=== PATIENT | female | born 1955 | race Caucasian/White ===

== ENCOUNTER 2017-01-18 11:28 | Outpatient (CLI) | payer OTHER ==
--- NOTE | 2017-01-19 16:13 | Mammography Report ---
DIGITAL SCREENING MAMMOGRAM: 01/18/2017 CLINICAL INDICATION: A 61-year-old with history of late childbearing, for screening, history of benig n biopsy. COMPARISON: 01/2014, 08/2011, 06/2009, 12/2007. TECHNIQUE: Routine CC and MLO projections were obtained of the breasts. FINDINGS: The breasts again demonstrate scattered fibroglandular densities bilaterally. Postbiopsy c hanges in the right upper outer quadrant are stable. No suspicious masses, clustered microcalcificati ons, or regions of architectural distortion are identified. IMPRESSION: BENIGN FINDINGS. RECOMMENDATION: ROUTINE ANNUAL SCREENING UNLESS OTHERWISE CLINICALLY INDICATED. BIRADS CATEGORY 2-BENIGN FINDINGS. STANDARD QUALIFYING STATEMENTS 1. This examination was reviewed with the aid of Computer-Aided Detection (CAD). 2. A negative or benign imaging report should not delay biopsy if clinically suspicious findings are present. Consider surgical consultation if warranted. More than 5% of cancers are not identified by i maging. 3. Dense breasts may obscure an underlying neoplasm. 15:9:30 JOB #: [id number] EXT JOB #:[id number]
== END 2017-01-18 11:29 | disposition home or self-care (01) ==
LOC: DI.S 11:28
PROVIDERS: ATTEND Family Medicine
DX: Z12.31 Encounter for screening mammogram for malignant neoplasm of breast (principal)
CPT/HCPCS: 77067

== ENCOUNTER 2018-10-30 14:33 | Emergency (ER) | payer OTHER ==
--- NOTE | 2018-10-30 15:20 | ED Physician Documentation ---
PD HPI LOWER EXT INJURY - Stated complaint Stated Complaint: L KNEE PX - Chief complaint Chief Complaint: Ext Problem - History obtained from History obtained from: Patient - History of Present Illness PD HPI LOW EXT INJURY LOCATION: Left, Knee Type of injury: Twist Where injury occurred: Work Timing - onset: Today Timing - duration: Hours (3) Timing - details: Abrupt onset Pain level max: 6 Pain level now: 4 Improved by: Rest Worsened by: Moving, Palpating Associated symptoms: Swelling. No: Weakness, Numbness, Tingling Contributing factors: No: Anticoagulated, Prior ortho surgery, Prosthetic joint Similar symptoms before: Diagnosis (has arthritis in the L knee) Recently seen: Not recently seen Review of Systems Constitutional: denies: Fever, Chills GI: denies: Vomiting Skin: denies: Rash Musculoskeletal: denies: Neck pain, Back pain PD PAST MEDICAL HISTORY - Past Medical History Past Medical History: No - Past Surgical History Past Surgical History: No - Present Medications Home Medications: Ambulatory Orders Medication Instructions Recorded Confirmed Hydrocodone/Acetaminophen 1 - 2 each PO Q6H PRN #14 tablet 10/30/18 [Hydrocodon-Acetaminophen 5-325] - Allergies Allergies/Adverse Reactions: Allergies Allergy/AdvReac Type Severity Reaction Status Date / Time Sulfa (Sulfonamide Allergy Hives Verified 10/30/18 14:49 Antibiotics) - Living Situation Living Situation: reports: With family Living Arrangement: reports: At home - Social History Does the pt have substance abuse?: No - Family History Family history: reports: Non contributory PD ED PE NORMAL - Vitals Vital signs reviewed: Yes - General General: Alert and oriented X 3, No acute distress - Derm Derm: Warm and dry - Extremities Extremities: Other (Left knee, mild effusion. ACL, MCL, PCL, LCL intact. No tenderness on the joint line. Neurovascularly intact) - Neuro Neuro: Alert and oriented X 3 - Psych Psych: Normal mood, Normal affect Results - Vitals Vitals: Vital Signs - 24 hr 10/30/18 10/30/18 14:47 16:46 Temperature 36.7 C 38.6 C H Heart Rate 98 92 Respiratory 18 18 Rate Blood Pressure 149/72 H 147/85 H O2 Saturation 98 98 Oxygen O2 Source Room air - Rads (name of study) Left knee x-ray Radiology: Prelim report reviewed, EMP read contemporaneously, See rad report (Overall moderate tricompartment degenerative joint disease with osteophytes. No subluxation. Small knee joint effusion. No evidence for acute fracture. ) PD MEDICAL DECISION MAKING - ED course Complexity details: reviewed results, re-evaluated patient, considered differential, d/w patient ED course: 63-year-old female with left knee pain. Mild joint effusion. Will utilize a walker at home. We will have her follow-up with her doctor for further care. Possible meniscus injury versus arthritis flare? Patient counseled regarding signs and symptoms for which I believe and urgent re-evaluation would be necessary. Patient with good understanding of and agreement to plan and is comfortable going home at this time This document was made in part using voice recognition software. While efforts are made to proofread this document, sound alike and grammatical errors may occur. Departure - Departure Disposition: 01 Home, Self Care Clinical Impression: Knee effusion, left Osteoarthritis of left knee Qualifiers: Osteoarthritis type: unspecified Qualified Code(s): M17.12 - Unilateral primary osteoarthritis, left knee Condition: Good Instructions: ED Effusion Knee Follow-Up: Dahlia Gorman PA [Primary Care Provider] - Within 1 week Prescriptions: Hydrocodone/Acetaminophen [Hydrocodon-Acetaminophen 5-325] 1 - 2 each PO Q6H PRN #14 tablet PRN Reason: pain Comments: Use the medication as needed for pain. Follow-up with your doctor for repeat evaluation after the swelling is decreased. Return if you worsen. Do not drink alcohol or drive while on narcotic pain medicine. Note that many narcotic pain relievers also contain tylenol/acetaminophen. Please ensure that your total dose of acetaminophen from all sources does not exceed 3 grams (3000mg) per day. You may constipated on this medication, take a stool softener such as "Colace" twice a day while you are on it. Also recommend a iyxn-erk-kdzqkpx laxative such as senna or MiraLAX any day that you do not have a bowel movement. If you received narcotic pain medication in the emergency department, do not drive or operate machinery for the next 24 hours. Forms: Activity restrictions Discharge Date/Time: 10/30/18 16:53
--- NOTE | 2018-10-30 16:30 | XRAY Report ---
Reason: L knee pain, s/p twist Procedure Date: 10/30/2018 Accession Number: [id number] / [id number] Procedure: XR - Knee 4 View LT CPT Code: FULL RESULT: EXAM: LEFT KNEE RADIOGRAPHY EXAM DATE: 10/30/2018 04:18 PM. CLINICAL HISTORY: No known injury, pain and swelling for 2 weeks. COMPARISON: XR KNEE 3 VIEW 04/10/2010 3:50 PM. TECHNIQUE: 4 views. FINDINGS: Overall moderate tricompartment degenerative joint disease with osteophytes. No subluxation. Small knee joint effusion. No evidence for acute fracture. IMPRESSION: Overall moderate tricompartment degenerative joint disease with osteophytes. No subluxation. Small knee joint effusion. No evidence for acute fracture. RADIA
[2018-10-30 16:47] VITALS: BP 147/85
== END 2018-10-30 16:53 | disposition home or self-care (01) ==
LOC: ED 14:33
DX: M25.462 Effusion, left knee (principal); M17.12 Unilateral primary osteoarthritis, left knee
CPT/HCPCS: 99283

== ENCOUNTER 2019-11-12 16:59 | Emergency (ER) | payer MEDICARE, OTHER ==
--- NOTE | 2019-11-12 18:16 | ED Physician Documentation ---
PD HPI UPPER EXT INJURY - Stated complaint Stated Complaint: FELL LAST NIGHT, WRIST INJURY - Chief complaint Chief Complaint: Trauma Ext - History obtained from History obtained from: Patient (She tripped and fell last night and injured her right wrist. Also her face. No loss of consciousness or headache. She broke her wrist a few months ago 2.) Review of Systems Constitutional: denies: Fever, Chills Eyes: denies: Loss of vision, Decreased vision Ears: denies: Loss of hearing, Ear pain Nose: denies: Rhinorrhea / runny nose, Congestion PD PAST MEDICAL HISTORY - Past Medical History Cardiovascular: None Respiratory: None Neuro: None Endocrine/Autoimmune: None GI: None ACCOUNT SERVICE ASSOCIATE: None : None HEENT: None Psych: Depression Musculoskeletal: None Derm: None - Past Surgical History Past Surgical History: No /ACCOUNT SERVICE ASSOCIATE: section - Present Medications Home Medications: Ambulatory Orders Medication Instructions Recorded Confirmed Hydrocodone/Acetaminophen 1 - 2 each PO Q6H PRN #14 tablet 10/30/18 [Hydrocodon-Acetaminophen 5-325] - Allergies Allergies/Adverse Reactions: Allergies Allergy/AdvReac Type Severity Reaction Status Date / Time Sulfa (Sulfonamide Allergy Hives Verified 11/12/19 17:03 Antibiotics) - Social History Does the pt smoke?: No Smoking Status: Never smoker Does the pt drink ETOH?: No Does the pt have substance abuse?: No - Immunizations Immunizations are current?: Yes - POLST Patient has POLST: No PD ED PE NORMAL - Vitals Vital signs reviewed: Yes - General General: Alert and oriented X 3, No acute distress - HEENT HEENT: Other (She has a lot of ecchymosis of the right side of the face, some bony tenderness of the infraorbital area. Extraocular movements seem intact.) - Neck Neck: Supple, no meningeal sign, No bony TTP - Extremities Extremities: Other (Mild tenderness over the distal radius, decent range of motion on the right.) - Neuro Neuro: Alert and oriented X 3, Normal speech Results - Vitals Vitals: Vital Signs - 24 hr 11/12/19 11/12/19 17:03 18:30 Temperature 36.5 C Heart Rate 78 79 Respiratory 14 16 Rate Blood Pressure 171/93 H 166/97 H O2 Saturation 98 98 Oxygen O2 Source Room air - Rads (name of study) X-ray right wrist Radiology: EMP read contemporaneously (Acute minimally displaced distal radius fracture) CT facial bones Radiology: EMP read contemporaneously (Right cheek hematoma, right nasal alar fracture. Soft tissue swelling. Right medial orbital wall defect into the right ethmoid sinus appears chronic) Departure - Departure Disposition: 01 Home, Self Care Clinical Impression: Fracture of right distal radius Qualifiers: Encounter type: initial encounter Fracture type: closed Fracture morphology: other intra-articular Qualified Code(s): S52.571A - Other intraarticular fracture of lower end of right radius, initial encounter for closed fracture Nasal fracture Qualifiers: Encounter type: initial encounter Fracture type: closed Qualified Code(s): S02.2XXA - Fracture of nasal bones, initial encounter for closed fracture Condition: Good Record reviewed to determine appropriate education?: Yes Instructions: ED Fx Forearm Radius Ulna No Redu Requ Follow-Up: [facility] [Provider Group] MALIA HUERTAS [Physician No Access] - Comments: For the wrist fracture you should follow-up with an orthopedic surgeon within the week. You can either follow-up with the local orthopedic surgeons listed on this form or through the [employer] system. Keep the splint on and dry until then. Do not remove it. For the nasal fracture you should follow-up with a facial surgeon. There is 1 in [place] who is listed on this form. You can follow- up with him or through the [employer] system. Also follow-up should happen within the week.
--- NOTE | 2019-11-12 18:39 | XRAY Report ---
Reason: fall with wrist injury Procedure Date: 11/12/2019 Accession Number: [id number] / [id number] Procedure: XR - Wrist 3 View RT CPT Code: Final Report FULL RESULT: EXAM: RIGHT WRIST RADIOGRAPHY EXAM DATE: 11/12/2019 06:02 PM. CLINICAL HISTORY: Fall with wrist injury. COMPARISON: None. TECHNIQUE: 3 views. FINDINGS: Bones: Acute right distal radial fracture, intra-articular with mild dorsal displacement of the dorsal fracture fragment. Adjacent soft tissue swelling. Joints: No subluxation. Mild first carpometacarpal osteoarthritis. IMPRESSION: Bones: Acute right distal radial fracture, intra-articular with mild dorsal displacement of the dorsal fracture fragment. Adjacent soft tissue swelling. Joints: No subluxation. Mild first carpometacarpal osteoarthritis. RADIA
--- NOTE | 2019-11-12 19:08 | CT Report ---
Reason: facial inj Procedure Date: 11/12/2019 Accession Number: [id number] / [id number] Procedure: CT - MAXILLOFACIAL WO CPT Code: Final Report FULL RESULT: EXAM: CT MAXILLOFACIAL WITHOUT CONTRAST EXAM DATE: 11/12/2019 06:43 PM. CLINICAL HISTORY: Facial injury, right facial bruising and swelling after fall last night. COMPARISONS: None. TECHNIQUE: Thin-section axial images were acquired of the face without contrast. Post-processing: Coronal and sagittal reformats. Other: None. In accordance with CT protocol optimization, one or more of the following dose reduction techniques were utilized for this exam: automated exposure control, adjustment of mA and/or KV based on patient size, or use of iterative reconstructive technique. FINDINGS: Acute right nasal alar fracture with moderate depression. Adjacent soft tissue swelling. Right preorbital soft tissue swelling. No acute orbital findings. Right cheek and jaw soft tissue swelling with contusions. Right cheek hematoma measuring 1.3 cm. Right medial orbital wall defect extending into the right ethmoid sinus, the defect measures 1 cm and this appears chronic. Remaining sinuses and visualized mastoid air cells appear clear. IMPRESSION: Acute right nasal alar fracture with moderate depression. Adjacent soft tissue swelling. Right preorbital soft tissue swelling. No acute orbital findings. Right cheek and jaw soft tissue swelling with contusions. Right cheek hematoma measuring 1.3 cm. Right medial orbital wall defect extending into the right ethmoid sinus, the defect measures 1 cm and this appears chronic. RADIA
[2019-11-12 19:30] VITALS: BP 155/89
== END 2019-11-12 19:30 | disposition home or self-care (01) ==
LOC: ED 16:59
DX: S52.571A Other intraarticular fracture of lower end of right radius, initial encounter for closed fracture (principal); S02.2XXA Fracture of nasal bones, initial encounter for closed fracture; S00.83XA Contusion of other part of head, initial encounter; W01.0XXA Fall on same level from slipping, tripping and stumbling without subsequent striking against object, initial encounter; Y92.007 Garden or yard of unspecified non-institutional (private) residence as the place of occurrence of the external cause
CPT/HCPCS: 70486; 99284

== ENCOUNTER 2020-06-26 08:56 | Outpatient (CLI) | payer MEDICARE ==
[2020-06-26 14:55] LABS: PARTIAL THROMBOPLASTIN TIME 30.1 secs (24.9-33.3)
[2020-06-26 15:28] LABS: BASOPHILS # (AUTO) 0.1 10^3/uL (0.0-0.1); BASOPHILS % (AUTO) 1.9 %; EOSINOPHILS # (AUTO) 0.2 10^3/uL (0.0-0.7); EOSINOPHILS % (AUTO) 3.8 %; HCT - HEMATOCRIT 42.2 % (37.0-47.0); HGB - HEMOGLOBIN 13.2 g/dL (12.0-16.0); LYMPHOCYTES # (AUTO) 1.4 10^3/uL (1.5-3.5); MEAN CORPUSCULAR HEMOGLOBIN 30.1 pg (27.0-31.0); MEAN CORPUSCULAR HGB CONC 31.3 g/dL (32.0-36.0); MEAN CORPUSCULAR VOLUME 96.3 fL (81.0-99.0); MEAN PLATELET VOLUME 10.7 fL (7.9-10.8); MONOCYTES # (AUTO) 0.5 10^3/uL (0.0-1.0); MONOCYTES % (AUTO) 12.6 %; NEUTROPHILS % (AUTO) 48.5 %; PLT - PLATELET COUNT 258 10^3/uL (130-450); RED BLOOD COUNT 4.38 10^6/uL (4.20-5.40); RED CELL DISTRIBUTION WIDTH 13.2 % (12.0-15.0); WHITE BLOOD COUNT 4.2 x10^3/uL (4.8-10.8)
[2020-06-26 15:53] LABS: INR 0.9 (0.8-1.2); PT - PROTHROMBIN TIME 10.3 secs (9.9-12.6)
[2020-06-26 15:56] LABS: ALBUMIN 4.8 g/dL (3.2-5.5); CREATININE 0.7 mg/dL (0.4-1.0); POTASSIUM 3.9 mmol/L (3.5-5.0); TOTAL PROTEIN 7.2 g/dL (6.7-8.2)
[2020-06-26 18:55] LABS: ESTIMATED AVERAGE GLUCOSE 111 mg/dL (70-100); HEMOGLOBIN A1c% 5.5 % (4.27-6.07)
== END 2020-06-26 08:57 | disposition home or self-care (01) ==
LOC: LAB.S 08:56
PROVIDERS: ATTEND Nurse Practitioner Family
DX: Z01.812 Encounter for preprocedural laboratory examination (principal)
CPT/HCPCS: 36415; 80053; 83036; 85025; 85610; 85730

== ENCOUNTER 2020-12-23 10:29 | Outpatient (CLI) | payer MEDICARE ==
--- NOTE | 2020-12-24 10:35 | XRAY Report ---
PROCEDURE: Ribs w/PA Chest LT INDICATIONS: RIB PAIN TECHNIQUE: 2 views of the left ribs were acquired, along with a single view chest. COMPARISON: None. FINDINGS: Surgical changes and devices: Bilateral shoulder arthroplasties. Bones and chest wall: No fractures or dislocations. No suspicious bony lesions. Overlying soft tis sues appear unremarkable. Lungs and pleura: No pleural effusions or pneumothorax. Lungs appear clear. Mediastinum: Mediastinal contours appear normal. Heart size is normal. IMPRESSION: 1. No displaced rib fractures. Reviewed by: Carroll Mcclure MD on 12/24/2020 10:34 AM PDT Approved by: Carroll Mcclure MD on 12/24/2020 10:34 AM PDT Station ID: [id number]
== END 2020-12-23 10:30 | disposition home or self-care (01) ==
LOC: DI.S 10:29
PROVIDERS: ATTEND Nurse Practitioner Family
DX: R07.81 Pleurodynia (principal)

== ENCOUNTER 2021-01-20 11:03 | Outpatient (CLI) | payer MEDICARE ==
[2021-01-20 11:59] VITALS: BP 151/76
--- NOTE | 2021-01-20 11:59 | SLEEP CARE CONSULTATION ---
Information from patient questionnaire entered by Kaila Lux. I have reviewed and concur with the information entered by Kaila Lux. This document represents the service I personally performed and the decisions made by , Dana Church ARNP. History of Present Illness Service Date and Time: 01/20/2021 1103 Reason for Visit: New patient, Previously diagnosed sleep apnea, sleep apnea on CPAP therapy Chief Complaint: reports: Unrefreshed sleep, Snoring, Observed pauses in breathing, Other (to order a new CPAP) Date of Onset: over 21 years Usual bedtime: 9:30 pm Time it takes to fall asleep: 15 minutes Snores at night: Yes Observed to quit breathing while asleep: Yes Number of times waking at night: 1 Reasons for waking at night: reports: Bathroom Toss, Turn, or Twitch while sleeping: Yes (previously) Recalls having dreams: No (only infrequently) Usually gets out of bed at: 6 - 7:30 am Feels refreshed in the morning: Yes (usually) Morning headache: No Sleepy or fatigued during the day: No Ever fallen asleep while driving: No Takes day naps: No (sometimes) Dreams during day naps: No Prior sleep studies: Yes Year and Where: 1999 - Additional HPI information: NIHARIKA BAUMAN was previously diagnosed to have mild, RDI 15, obstructive sleep apnea-hypopnea syndrome and comes in today to establish care for her CPAP therapy. - Parasomnia Symptoms Ever been unable to move upon waking from sleep: No Walks in sleep: No Talks in sleep: No Ever acted out dreams in sleep: No Ever felt weak in the knees when startled or emotional: No Bothered by creepy, crawly, restless sensations in legs: No Problems with memory or concentration: Yes (memory) CPAP Compliance Data - Data Reviewed with Patient Average duration of nightly device use: 8 hours 38 minutes Compliance rate %: 100 Current pressure setting (cmH2O): 7-20 Average residual AHI: 3.7 Average large leak: 29 mins 55 secs Compliance data discussion: She was getting her supplies from [employer] in the past. She is using a nasal pi llows mask. She does have a back up mask if she needed it. She last changed her mask cushion or about 2-3 years. Subjective Patient concerns: reports: mask leak noise, dry mouth, nose, throat (partly due to her medications; uses Xylomelts), other (headgear too loose). denies: aerophagia, mask discomfort, air blowing in eyes, condensation in mask/hose, nasal congestion, epistaxis Observed to snore while using device: No Current pressure setting perceived as: comfortable On therapy, patient: reports: sleeping better, awakening more refreshed, being more awake and alert during the day, more rested overall. denies: drowsiness while driving Initial [place] Sleepiness Scale score: 2 (in 2020) Past Medical History Past Medical History: reports: Hypertension, Arthritis, Insulin resistance (pre- diabetes), Anxiety, Depression Social History The patient's occupation is a Retired. Patient is and lives in [place]. Have you smoked in the past 12 months: No Alcohol use: No Caffeine use: Yes Caffeine amount and frequency: 3 cups a day Family History Family history of sleep disordered breathing: Yes (father, brother) Family Hx Sleep Apnea: Father: Snoring, Sibling: Snoring Allergies and Home Medications Drug allergies reviewed: Yes (Sulfa Antibiotics) Home medication list reviewed: Yes Allergy and home medication list: Acyclovir Ascorbic acid Bupropion Duloxetine HCTZ Lamotrigine Lysine oral Meloxicam Metformin Review of Systems Cardiovascular: reports: high blood pressure Gastrointestinal: denies: heartburn Neurological: denies: headaches Psychiatric: reports: anxiety, depression. denies: mood disorder Ear/Nose/Throat: reports: wisdom teeth removed. denies: tonsillectomy Endocrine: denies: thyroid disease Musculoskeletal: reports: joint pain Physical Exam Blood Pressure: 151/76 Cuff size: wrist Heart Rate: 85 O2 Saturation: 95 Height: 5 ft 6 in Weight: 215 lb Body Mass Index: 34.7 BMI Classification: Obese Heart: regular rate and rhythm Lungs: clear bilaterally Impression and Plan 1. Obstructive Sleep Apnea-Hypopnea Syndrome, mild, with excellent treatment compliance and good apnea control. On CPAP therapy, the patient has better sleep quality and is more rested overall. Patient was aware of the recall and we d iscussed the [employer] recall in depth. Patient has already registered their device for the recall. Patient denies any black particles, unusual odors coming from device or any physical symptoms such as upper airway irritation. Patient informed that they may use an inline CPAP filter that they can obtain online to reduce chance of any particles being inhaled or ingested. We discussed thoroughly the health risks of not using the CPAP versus continuing use with the filter in place. If patient is not able to sleep due to waking up choking, gasping for air or other respiratory distress that they may decide to continue using it until it is either replaced or repaired. Since the patients current machine is at least 5 years old the patient may opt to update their device with a device that is not on the recall. The patients CPAP is over 5 years old and of reasonable use. Thus, the CPAP will be updated. A DWO prescription will be made. Compliance guidelines for new device and follow up discussed. Patient voiced understanding and agreement with plan. Patient's apnea severity and rationale for treatment to reduce apnea, improve sleep quality and reduce cardiovascular and cerebrovascular events was reviewed. I also reviewed the benefit of consistent device use of CPAP for hypertension, depression, anxiety and insulin resistance (pre-diabetes). Patient was encouraged to try to lose weight to improve her overall health. * Continue auto CPAP pressure at 7-20 cmH2O * Update machine and supplies * Notify me if snoring with mask or feeling that the pressure is too much or too little * Attempt to lose weight * Call this office if any problems using CPAP * Return for follow up one month after obtaining new device, or sooner if concerns arise Counseling Topics: Spare mask, Weight loss health impact Visit Type: In Office Time Spent with Patient (minutes): 40 Provider Statement: I spent 100% of the Face to Face Visit with the patient with greater than 50% spent counseling the patient and coordination of care.
== END 2021-01-20 11:04 | disposition home or self-care (01) ==
LOC: SC 11:03
PROVIDERS: ATTEND Nurse Practitioner Family
DX: G47.33 Obstructive sleep apnea (adult) (pediatric) (principal); E66.9 Obesity, unspecified; Z68.34 Body mass index [BMI] 34.0-34.9, adult
CPT/HCPCS: 99203; G0463; 99212

== ENCOUNTER 2021-10-20 08:13 | Outpatient (CLI) | payer MEDICARE ==
[2021-10-20 14:37] LABS: BASOPHILS # (AUTO) 0.1 10^3/uL (0.0-0.1); BASOPHILS % (AUTO) 1.9 %; EOSINOPHILS # (AUTO) 0.2 10^3/uL (0.0-0.7); EOSINOPHILS % (AUTO) 4.3 %; HCT - HEMATOCRIT 40.4 % (37.0-47.0); HGB - HEMOGLOBIN 13.4 g/dL (12.0-16.0); LYMPHOCYTES # (AUTO) 1.2 10^3/uL (1.5-3.5); LYMPHOCYTES % (AUTO) 31.1 %; MEAN CORPUSCULAR HEMOGLOBIN 30.7 pg (27.0-31.0); MEAN CORPUSCULAR HGB CONC 33.2 g/dL (32.0-36.0); MEAN CORPUSCULAR VOLUME 92.7 fL (81.0-99.0); MEAN PLATELET VOLUME 10.6 fL (7.9-10.8); MONOCYTES # (AUTO) 0.4 10^3/uL (0.0-1.0); MONOCYTES % (AUTO) 11.1 %; NEUTROPHILS # (AUTO) 1.9 10^3/uL (1.5-6.6); NEUTROPHILS % (AUTO) 51.3 %; PLT - PLATELET COUNT 241 10^3/uL (130-450); RED BLOOD COUNT 4.36 10^6/uL (4.20-5.40); RED CELL DISTRIBUTION WIDTH 12.3 % (12.0-15.0); WHITE BLOOD COUNT 3.7 x10^3/uL (4.8-10.8)
[2021-10-20 15:07] LABS: ALBUMIN 4.6 g/dL (3.2-5.5); ALKALINE PHOSPHATASE 55 IU/L (42-121); ALT ALANINE AMINOTRANSFERASE 24 IU/L (10-60); AST ASPARTATE AMINOTRANSFERASE 24 IU/L (10-42); BILIRUBIN,TOTAL 0.7 mg/dL (0.2-1.0); BUN - BLOOD UREA NITROGEN 12 mg/dL (6-20); CALCIUM 9.6 mg/dL (8.5-10.3); CARBON DIOXIDE - CO2 27 mmol/L (21-32); CHLORIDE 99 mmol/L (101-111); CHOL/HDL RATIO 2.7 (<4.4); CHOLESTEROL 216 mg/dL; CREATININE 0.7 mg/dL (0.4-1.0); GFR - MDRD 83 (>89); GLUCOSE 105 mg/dL (70-100); HDL CHOLESTEROL 81 mg/dL; LDL CHOLESTEROL,CALCULATED 123 mg/dL; LDL/HDL RATIO 1.5 (<4.4); POTASSIUM 3.8 mmol/L (3.5-5.0); SODIUM 135 mmol/L (135-145); TOTAL PROTEIN 6.9 g/dL (6.7-8.2); TRIGLYCERIDES 62 mg/dL; VLDL CHOLESTEROL 12 mg/dL
[2021-10-20 20:41] LABS: ESTIMATED AVERAGE GLUCOSE 111 mg/dL (70-100); HEMOGLOBIN A1c% 5.5 % (4.27-6.07)
== END 2021-10-20 08:14 | disposition home or self-care (01) ==
LOC: LAB.S 08:13
PROVIDERS: ATTEND Nurse Practitioner Psychiatric/Mental Health
DX: F31.2 Bipolar disorder, current episode manic severe with psychotic features (principal); E55.9 Vitamin D deficiency, unspecified; Z79.899 Other long term (current) drug therapy
CPT/HCPCS: 36415; 80053; 80061; 82306; 83036; 83540; 83721; 85025

== ENCOUNTER 2022-07-01 12:52 | Outpatient (CLI) | payer MEDICARE ==
--- NOTE | 2022-07-01 17:24 | DEXA Report ---
PROCEDURE: Dexa Spine and/or Hip INDICATIONS: POSTMENOPAUSAL TECHNIQUE: Dual energy x-ray absorptiometry (DXA) was performed on a [employer] System. Regions measur ed are the AP Spine, femoral neck, and if needed forearm. COMPARISON: None. FINDINGS: Lumbar Spine: Bone Mineral Density 1.165 g/cm/cm,T score -0.1, normal Left Femoral Neck: Bone Mineral Density 0.978 g/cm/cm, T score -0.4, normal Left Hip: Bone Mineral Density 0.985 g/cm/cm,T score 2, normal (T score greater or equal to -1.0: NORMAL) (T score from -1.1 to -2.4: OSTEOPENIA) (T score less than or equal to -2.5 to: OSTEOPOROSIS) Impression: Normal bone mineralization Patients with diagnosis of osteoporosis or osteopenia should have regular bone mineral density assess ment. For those eligible for Medicare, routine testing is allowed once every 2 years. Testing frequ ency can be increased for patients who have rapidly progressing disease or for those who are receivin g medical therapy to restore bone mass. Reviewed by: Tarun Leach MD on 07/01/2022 4:22 PM [place] Approved by: Tarun Leach MD on 07/01/2022 4:22 PM [place] Station ID: [id number]
== END 2022-07-01 12:53 | disposition home or self-care (01) ==
LOC: DI 12:52
PROVIDERS: ATTEND Nurse Practitioner Family
DX: Z78.0 Asymptomatic menopausal state (principal)

== ENCOUNTER 2022-12-21 14:46 | Outpatient (CLI) | payer MEDICARE ==
--- NOTE | 2022-12-21 15:18 | SLEEP CARE CONSULTATION ---
Information from patient questionnaire entered by Susie Jama. I have reviewed and concur with the information entered by Susie Jama. This document represents the service I personally performed and the decisions made by me, Dana Church ARNP. History of Present Illness Service Date and Time: 12/21/2022 1446 Previous diagnosis: Mild, Obstructive Sleep Apnea-Hypopnea Syndrome AHI: 15 (RDI) Reason for follow up: annual (LAST SEEN 12/2020) Equipment type: CPAP ([employer] Dreamstation recertified machine; SD CARD NEEEDED) Equipment obtained from: [employer] (getting supplies) Mask style: Nasal Backup mask available: Yes (old mask) Last cushion change: few months Prior sleep studies: Yes Year and Where: 1999 - additional information: NIHARIKA BAUMAN was diagnosed to have mild, RDI 15, obstructive sleep apnea- hypopnea syndrome and returned today for CPAP therapy annual follow-up. Sleep Study - Results Prior sleep studies: Yes Year and Where: 1999 - CPAP Compliance Data - Data Reviewed with Patient Average duration of nightly device use: 8 hours 7 minutes Compliance rate %: 100 (30/30 days used) Current pressure setting (cmH2O): 4-20 Average residual AHI: 3.5 Average large leak: 6 mins 24 secs Compliance data discussion: She received a new Dreamstation recertified machine about 1-2 months ago. Subjective Patient concerns: denies: aerophagia, mask discomfort, air blowing in eyes, mask leak noise, condensation in mask/hose, nasal congestion, dry mouth, nose, throat, epistaxis Observed to snore while using device: No Current pressure setting perceived as: comfortable On therapy, patient: reports: sleeping better, awakening more refreshed, being more awake and alert during the day, more rested overall. denies: drowsiness while driving Initial [place] Sleepiness Scale score: 2 (in 2020) Current [place] Sleepiness Scale score: 0 (12/21/22) Allergies and Home Medications Known drug allergies: Yes (sulfa) Drug allergies reviewed: Yes Home medication list reviewed: Yes (no changes) Allergy and home medication list: Allergies Sulfa (Sulfonamide Antibiotics) Allergy (Verified 12/20/22 16:29) Hives Review of Systems Review of systems same as previous: Yes (no changes) Physical Exam Vital signs obtained and entered by: SUSIE Sung MA Blood Pressure: 142/80 (LEFT ARM) Cuff size: long Heart Rate: 86 O2 Saturation: 94 Height: 5 ft 6 in Weight: 212 lb 6.4 oz Body Mass Index: 34.2 BMI Classification: Obese Impression and Plan 1. Obstructive Sleep Apnea-Hypopnea Syndrome, mild, with good treatment compliance and good apnea control. On CPAP therapy, the patient has better sleep quality and is more rested overall. Patient has significant improvement of their sleep apnea and is satisfied with current CPAP therapy. She received a replacement CPAP from [employer] that is recertified. She was advised to reach out to [employer] to get them to register the device with them so we can get the data online. She voiced understanding. Patient's apnea severity and rationale for treatment to reduce apnea, improve sleep quality and reduce cardiovascular and cerebrovascular events was reviewed. I also reviewed the benefit of consistent device use of CPAP for hypertension, insulin resistance, depression and anxiety. 2. Obesity, unspecified. Currently patients BMI is 34.2. Obesity increases the risk of apnea, CPAP pressure requirements and overall health risks especially cardiovascular and diabetes. Thus patient is advised to continue to try to lose weight. * Continue auto CPAP pressure at 4-20 cmH2O * Update supplies * Notify me if snoring with mask or feeling that the pressure is too much or too little * Attempt to lose weight * Call this office if any problems using CPAP * Return for follow up in 1 year, or sooner if concerns arise Counseling Topics: Spare mask, Weight loss health impact Visit Type: In Office Time Spent with Patient (minutes): 20 Provider Statement: I spent 100% of the Face to Face Visit with the patient with greater than 50% spent counseling the patient and coordination of care.
[2022-12-21 15:23] VITALS: BP 142/80
== END 2022-12-21 14:47 | disposition home or self-care (01) ==
LOC: SC 14:46
PROVIDERS: ATTEND Nurse Practitioner Family
DX: G47.33 Obstructive sleep apnea (adult) (pediatric) (principal); E66.9 Obesity, unspecified; Z68.34 Body mass index [BMI] 34.0-34.9, adult
CPT/HCPCS: 99213; G0463; 99212

== ENCOUNTER 2023-08-02 12:07 | Outpatient (CLI) | payer MEDICARE ==
--- NOTE | 2023-08-02 13:09 | XRAY Report ---
PROCEDURE: Lumbar Spine 2-3V INDICATIONS: LOW BACK PAIN TECHNIQUE: 3 views of the lumbar spine were acquired. COMPARISON: None. FINDINGS: Bones: 5 [id number] vertebrae are present. There is trace retrolisthesis of L1 on L2 as well a s 7 mm anterolisthesis of L5 4 on L5. Multilevel moderate to severe disc space narrowing is present m ost severe at L4-5. Multilevel foraminal narrowing is present most. L5-S1. Mild wedge deformity at L1 , suspected to be chronic. No suspicious bony lesions. Soft tissues: Overlying bowel gas pattern is normal. No suspicious soft tissue calcifications. IMPRESSION: Multilevel degenerative changes as above. Reviewed by: Ana Hicks MD on 08/02/2023 1:08 PM PST Approved by: Ana Hicks MD on 08/02/2023 1:08 PM PST Station ID: [id number]
--- NOTE | 2023-08-02 13:12 | XRAY Report ---
PROCEDURE: Pelvis 1-2V INDICATIONS: LOW BACK PAIN TECHNIQUE: 1 view(s) of the pelvis acquired. COMPARISON: None. FINDINGS: Bones: No fractures or dislocations. No suspicious bony lesions. Soft tissues: Visualized bowel gas pattern is normal. No suspicious soft tissue calcifications. IMPRESSION: No visualized acute fracture or dislocation. However, occult injury cannot be excluded. Recommend mat rt interval imaging follow-up in 7-10 days as clinically indicated for additional evaluation. Reviewed by: Ana Hicks MD on 08/02/2023 1:11 PM PST Approved by: Ana Hicks MD on 08/02/2023 1:11 PM PST Station ID: [id number]
--- NOTE | 2023-08-02 13:13 | XRAY Report ---
PROCEDURE: Sacrum/Coccyx INDICATIONS: LOW BACK PAIN TECHNIQUE: 2 views of the sacrum and coccyx acquired. COMPARISON: None. FINDINGS: Bones: No fractures or dislocations. No suspicious bony lesions. Soft tissues: Visualized bowel gas pattern is normal. No suspicious soft tissue densities. IMPRESSION: No visualized acute fracture or dislocation. However, occult injury cannot be excluded. Recommend mat rt interval imaging follow-up in 7-10 days as clinically indicated for additional evaluation. Reviewed by: Ana Hicks MD on 08/02/2023 1:12 PM PST Approved by: Ana Hicks MD on 08/02/2023 1:12 PM PST Station ID: [id number]
== END 2023-08-02 12:08 | disposition home or self-care (01) ==
LOC: DI.S 12:07
PROVIDERS: ATTEND Registered Nurse
DX: M43.17 Spondylolisthesis, lumbosacral region (principal); M43.16 Spondylolisthesis, lumbar region; M47.817 Spondylosis without myelopathy or radiculopathy, lumbosacral region; M47.816 Spondylosis without myelopathy or radiculopathy, lumbar region

== ENCOUNTER 2024-03-02 12:50 | Outpatient (CLI) | payer MEDICARE ==
--- NOTE | 2024-03-02 13:18 | Sleep Patient Instructions ---
Sleep Center Visit Summary - Patient Visit Information Reason for Visit: Annual followup - Patient Instructions Additional Instructions: You will continue with CPAP therapy with pressure set at 4-20 cmH2O. A supply prescription will be updated with your DME supplier. Please follow up with the sleep care office in 1 year. - Clinic Information Contact: [facility] [address] [place] [address] [email or web address] T: [phone]
--- NOTE | 2024-03-02 13:24 | SLEEP CARE CONSULTATION ---
Information from patient questionnaire entered by Mercy Cat. I have reviewed and concur with the information entered by Mercy Cat. This document represents the service I personally performed and the decisions made by , Dana Church ARNP. History of Present Illness Service Date and Time: 03/02/2024 1250 Previous diagnosis: Mild, Obstructive Sleep Apnea-Hypopnea Syndrome AHI: 15 (RDI) Reason for follow up: annual (Last seen 11/2022) Equipment type: CPAP ([employer] Dreamstation recertified machine; SD CARD NEEEDED) Equipment obtained from: [employer] (getting supplies) Mask style: Nasal Backup mask available: Yes (old mask) Last cushion change: 6 months Prior sleep studies: Yes Year and Where: 1999 - additional information: NIHARIKA BAUMAN was diagnosed to have mild, AHI 15, obstructive sleep apnea- hypopnea syndrome and returned today for CPAP therapy annual follow-up. Sleep Study - Results Prior sleep studies: Yes Year and Where: 1999 - CPAP Compliance Data - Data Reviewed with Patient Average duration of nightly device use: 8 h 16 min Compliance rate %: 100 (365/365 days used) Current pressure setting (cmH2O): 4 - 20 (avg 11.4) Humidity setting: Off Heated hose settin Average residual AHI: 3.7 Average large leak: 16 min 11 sec Subjective Missed days of use due to: reports: travel Patient concerns: reports: dry mouth, nose, throat (occasional). denies: aerophagia, mask discomfort, air blowing in eyes, mask leak noise, condensation in mask/hose, nasal congestion, epistaxis Observed to snore while using device: No Current pressure setting perceived as: comfortable On therapy, patient: reports: sleeping better, more rested overall. denies: drowsiness while driving Initial [place] Sleepiness Scale score: 2 (in 2020) Current [place] Sleepiness Scale score: 0 Allergies and Home Medications Known drug allergies: Yes (Sulfa) Drug allergies reviewed: Yes Home medication list reviewed: Yes (no changes) Allergy and home medication list: Allergies Sulfa (Sulfonamide Antibiotics) Allergy (Verified 12/21/22 14:52) Hives Review of Systems Review of systems same as previous: Yes (no changes) Physical Exam Vital signs obtained and entered by: Dana Maravilla NP Blood Pressure: 107/80 Cuff size: regular (left arm) Heart Rate: 76 O2 Saturation: 97 Height: 5 ft 6 in Weight: 211 lb Weight change since last visit: 1 lb loss Body Mass Index: 34.0 BMI Classification: Obese Impression and Plan 1. Obstructive Sleep Apnea-Hypopnea Syndrome, mild, with good treatment compliance and good apnea control. On CPAP therapy, the patient has better sleep quality and is more rested overall. She has significant improvement of her sleep apnea and is satisfied with current CPAP therapy. She gets occasional dry mouth but otherwise has no complaints. She would like to be able to do her appointments telehealth if possible next year. I discussed that her machine currently does not transmit information so she would have to either send us the SD card or bring the machine in to get her data. She may also check with her insurance or [employer] to see if she is eligible for a new machine and then it could be updated. She voiced understanding. Patient's apnea severity and rationale for treatment to reduce apnea, improve sleep quality and reduce cardiovascular and cerebrovascular events was reviewed. I also reviewed the benefit of consistent device use of CPAP for hypertension, insulin resistance, diabetes, gastric reflux. 2. Obesity, unspecified. Currently patients BMI is 34. Obesity increases the risk of apnea, CPAP pressure requirements and overall health risks especially cardiovascular and diabetes. Thus patient is advised to lose weight. * Continue auto CPAP pressure at 4-20 cmH2O * Update supply prescription. * Notify me if snoring with mask or feeling that the pressure is too much or too little * Attempt to lose weight * Call this office if any problems using CPAP * Return for follow up in 12 months, or sooner if concerns arise Counseling Topics: Spare mask, Weight loss health impact Prescriptions: Device supplies Follow up with Sleep Care in: 1 year Visit Type: In Office Time Spent with Patient (minutes): 21 Provider Statement: I spent 100% of the Face to Face Visit with the patient with greater than 50% spent counseling the patient and coordination of care.
[2024-03-02 13:28] VITALS: BP 107/80; O2SAT 97
== END 2024-03-02 12:51 | disposition home or self-care (01) ==
LOC: SC 12:50
PROVIDERS: ATTEND Nurse Practitioner Family
DX: G47.33 Obstructive sleep apnea (adult) (pediatric) (principal); E66.9 Obesity, unspecified; Z68.34 Body mass index [BMI] 34.0-34.9, adult
CPT/HCPCS: 99213; G0463; 99212

== ENCOUNTER 2024-03-12 08:00 | Outpatient (CLI) | payer MEDICARE | END 2024-03-12 23:59 | disposition home or self-care (01) | LOC: LAB.S 08:00 | PROVIDERS: ATTEND Physician Assistant Medical | DX: R30.0 Dysuria (principal) | CPT/HCPCS: 87086 ==